=== PATIENT | male | born 1935 | race Caucasian/White ===

== ENCOUNTER 2017-10-13 10:07 | Emergency (ER) | payer MEDICARE ==
[~2017-10-13] VITALS: Ht 182.9 cm; Wt 90.0 kg
[~2017-10-13 10:07] MED LIST: Z.0.NO CURRENT MEDS
[2017-10-13 10:09] VITALS: BP 172/90; PULSE 65; RESP 12; TEMP 99.1; O2SAT 99
--- NOTE | 2017-10-13 11:16 | PD ---
HPI Chief Complaint: Skin Problem Time Seen by Provider: 11:03 Travel History International Travel<30 days: No Contact w/Intl Traveler<30days: No Traveled to known affect area: No History of Present Illness HPI 82-year-old male with PMH of HTN presents to the ED for evaluation of 4 day history of painful, reddened bump on the right anterior neck. Described as constant. No alleviating or exacerbating factors reported. Onset after the patient shaved. He denies fevers, chills, nausea, vomiting. No treatment attempted at home. He's never had a similar skin problem. Patient is current smoker. No PCP. PFSH Past Medical History Hypertension: Yes Social History Alcohol Use: Yes (FIRST TIME TONIGHT IN 4 WEEKS) Tobacco Use: Yes (1PPD) Substance Use: No Allergies-Medications (Allergen,Severity, Reaction): Coded Allergies: No Known Allergies (Verified Adverse Reaction, Unknown, 10/13/17) Reported Meds & Prescriptions Reported Meds & Active Scripts Active Bactrim DS (Sulfamethoxazole-Trimethoprim) 800-160 Mg Tab 1 Tab PO BID 7 Days Reported No Current Meds (Miscellaneous Medication) Misc Review of Systems Except as stated in HPI: all other systems reviewed are Neg Physical Exam Narrative GENERAL: Well-nourished, well-developed hard of hearing white male in no acute distress. SKIN: Focused skin assessment warm/dry. SKIN: There is an indurated area in the right neck which measures about 2.5 cm in diameter. It is fluctuant but there is no pointing or drainage. There is a zone of inflammation around it but no lymphangitis. HEAD: Normocephalic. EYES: No scleral icterus. No injection or drainage. NECK: Supple, trachea midline. No JVD or lymphadenopathy. CARDIOVASCULAR: Regular rate and rhythm without murmurs, gallops, or rubs. RESPIRATORY: Breath sounds equal bilaterally. No accessory muscle use. GASTROINTESTINAL: Abdomen soft, non-tender, nondistended. MUSCULOSKELETAL: No cyanosis, or edema. BACK: Nontender without obvious deformity. No CVA tenderness. Data Data Last Documented VS Vital Signs Date Time Temp Pulse Resp B/P (MAP) Pulse Ox O2 Delivery O2 Flow Rate FiO2 10/13/17 10:09 99.1 65 12 172/90 (117) 99 Orders Orders Lidocaine 1% Inj (50 Ml) (Xylocaine 1% I (10/13/17 11:30) Abscess Culture And Gram Stain (10/13/17 11:16) Sulfamet-Trimeth Ds 800-160 Mg (Bactrim (10/13/17 11:30) Ed Discharge Order (10/13/17 12:24) [facility] Medical Decision Making Medical Screen Exam Complete: Yes Emergency Medical Condition: Yes Differential Diagnosis Furuncle versus carbuncle versus ingrown hair versus abscess versus cellulitis versus other Narrative Course 82-year-old male with PMH of HTN presents to the ED for evaluation of 4 day history of painful, reddened bump on the right anterior neck. Described as constant. No alleviating or exacerbating factors reported. Onset after the patient shaved. He denies fevers, chills, nausea, vomiting. No treatment attempted at home. He's never had a similar skin problem. Patient is current smoker. No PCP. Vitals reviewed. Physical exam consistent with abscess of the right anterior neck. I&D was performed. Please see my procedure note for details. Patient states he has no money to pay for antibiotics. He is prescribed Bactrim DS twice a day 7 days, first dose administered in the ED. He was informed of this medication is free at [facility]. He is instructed not to remove the dressing that was applied today, return to the ED in 48 hours for packing removal and wound evaluation. He indicated understanding of the instructions and is agreeable care plan. The patient is stable and discharged home. Procedures Procedure Narrative INCISION AND DRAINAGE OF ABSCESS: The area was prepped and was sterilely draped. A subcutaneous wheal of 1% % Xylocaine with a total number 3 mL was used to anesthetize the area properly. A number 11 scalpel was used to make a 1 -cm incision across the area of the abscess. The abscess was drained, complex loculations were broken down, and irrigated with normal saline. Cultures were obtained. Quarter inch iodoform packing was placed in the wound. Sterile dressing applied. Patient advised to have packing removed in two days. Diagnosis Primary Impression: Abscess of skin of neck Referrals: Primary Care Physician Patient Instructions: Abscess (ED), General Instructions Additional Instructions: Rest, hydrate. Do not change the dressing for 2 days. Take the antibiotics as they are prescribed, beginning today. The antibiotic that you're prescribed is free at [facility]. Utilize [id number] pain medications, as described on the label, as needed. RETURN TO THE ED IN 48 HOURS FOR WOUND EVALUATION AND PACKING REMOVAL. Return to the ED for any urgent or emergent medical condition. Med/Other Pt SpecificInfo: Prescription(s) given Scripts Sulfamethoxazole-Trimethoprim (Bactrim DS) 800-160 Mg Tab 1 TAB PO BID for Infection for 7 Days, #14 TAB 0 Refills Prov: Cassie Rowland MD 10/13/17 Disposition: 01 DISCHARGE HOME Condition: Stable Chloe Carrion Oct 13, 2017 11:16
[2017-10-13] MEDS ORDERED: LIDOCAINE HCL 1% 50 ML VIAL INFIL ONE (11:30)
[2017-10-13] MEDS ORDERED: SULFAMETHOXAZOLE-TRIMETHOPRIM DS 800-160 MG TAB PO ONE (11:30)
[2017-10-13] MEDS ORDERED: BACT800T5 PO (12:24)
[2017-10-13 12:39] VITALS: BP 128/70
== END 2017-10-13 12:52 | disposition home or self-care (01) ==
LOC: NEPC 10:07
DX: L02.11 Cutaneous abscess of neck (principal); I10 Essential (primary) hypertension; F17.200 Nicotine dependence, unspecified, uncomplicated; A49.02 Methicillin resistant Staphylococcus aureus infection, unspecified site
CPT/HCPCS: 10061; 86403; 87070; 87186

== ENCOUNTER 2017-10-14 10:48 | Emergency (ER) | payer MEDICARE ==
[~2017-10-14 10:48] MED LIST changes: +BACT800T5 PO
[2017-10-14 10:51] VITALS: BP 127/80; PULSE 76; RESP 17; TEMP 97.5; O2SAT 95
--- NOTE | 2017-10-14 11:08 | PD ---
HPI Chief Complaint: Skin Problem Time Seen by Provider: 11:01 Travel History International Travel<30 days: No Contact w/Intl Traveler<30days: No Traveled to known affect area: No History of Present Illness HPI 82-year-old male presents to emergency department status post I&D to his right cheek yesterday. Patient states that the packing and bandage came off and was concerned about this. Patient denies excessive pain or tenderness to the area, fever, chills. He has no other complaints today. PFSH Past Medical History Hypertension: Yes Social History Alcohol Use: Yes (FIRST TIME TONIGHT IN 4 WEEKS) Tobacco Use: Yes (1PPD) Substance Use: No Allergies-Medications (Allergen,Severity, Reaction): Coded Allergies: No Known Allergies (Verified Adverse Reaction, Unknown, 10/13/17) Reported Meds & Prescriptions Reported Meds & Active Scripts Active Bactrim DS (Sulfamethoxazole-Trimethoprim) 800-160 Mg Tab 1 Tab PO BID 7 Days Reported No Current Meds (Miscellaneous Medication) Misc Review of Systems Except as stated in HPI: all other systems reviewed are Neg Physical Exam Narrative GENERAL: Well-nourished, well-developed patient. SKIN: Focused skin assessment warm/dry. HEAD: Normocephalic. EYES: No scleral icterus. No injection or drainage. NECK: Supple, trachea midline. No JVD or lymphadenopathy. Right angle of the mandible- 1 cm round wound/ulcer x 3-5mm depth, serosanguineous fluid easily expressed. nonfluctuant. CARDIOVASCULAR: Regular rate and rhythm without murmurs, gallops, or rubs. RESPIRATORY: Breath sounds equal bilaterally. No accessory muscle use. MUSCULOSKELETAL: No cyanosis, or edema. BACK: Nontender without obvious deformity. No CVA tenderness. Data Data Last Documented VS Vital Signs Date Time Temp Pulse Resp B/P (MAP) Pulse Ox O2 Delivery O2 Flow Rate FiO2 10/14/17 11:31 10/14/17 11:29 20 10/14/17 10:51 97.5 76 95 Room Air Orders Orders Wound Care (10/14/17 11:05) Ed Discharge Order (10/14/17 11:10) MDM Medical Decision Making Medical Screen Exam Complete: Yes Emergency Medical Condition: Yes Differential Diagnosis wound check vs cellulitis vs abscess Narrative Course 82-year-old male presents to emergency department status post I&D to his right cheek yesterday. Patient states that the packing and bandage came off and was concerned about this. Patient denies excessive pain or tenderness to the area, fever, chills. He has no other complaints today. Vital signs stable Physical exam consistent with status post I&D right cheek. One site appears ulcerated with serosanguineous fluid expressed Patient returns today because he accidentally pulled out the packing and gauze from his wound. Patient refuses more packing. I advised patient of risk versus benefit up into severe infection and . Telfa and gauze applied to the wound site. Advised patient to continue antibiotics as prescribed. Return for wound check in 2 days if no primary care available. Pt agreed and will comply. Diagnosis Primary Impression: Visit for wound check Referrals: Primary Care Physician Additional Instructions: Return to the emergency department in 2 days for wound check. Follow-up with her primary care physician within 2-3 days. If your wound becomes bigger, more red, or he develops pus return to the emergency department. Physical antibiotics as prescribed. Disposition: 01 DISCHARGE HOME Condition: Stable Tari Little Oct 14, 2017 11:08
== END 2017-10-14 11:32 | disposition home or self-care (01) ==
LOC: NEPK 10:48
DX: Z48.00 Encounter for change or removal of nonsurgical wound dressing (principal)
CPT/HCPCS: 99282